=== PATIENT | female | born 1985 | race Caucasian/White ===

== ENCOUNTER 2017-01-05 02:05 | Emergency (ER) | payer MEDICAID, OTHER ==
[~2017-01-05] VITALS: Ht 157.5 cm; Wt 100.0 kg
[2017-01-05] MEDS ORDERED: HYDROcodone/APAP 5 MG/325 MG (NORCO) TAB PO ONE (02:30)
[2017-01-05] MEDS ORDERED: TETRACAINE 0.5% OPHTHALMIC SOLUTION 4 ML BTL OS ONE (02:30)
[2017-01-05] MEDS ORDERED: IBUPROFEN 200 MG (MOTRIN) TAB PO ONE (02:30)
[2017-01-05] MEDS ORDERED: FLUORESCEIN (FLUOR-I-STRIPS) 1 MG STRIP OS ONE (02:30)
[2017-01-05] MEDS ORDERED: ED- BACITRACIN/POLYMYXIN OPHTHALMIC OINT (AK-POLY-BAC) 3.5 GM TUBE OS ONE (02:35)
[2017-01-05 03:39] VITALS: BP 129/90
== END 2017-01-05 03:39 | disposition home or self-care (01) ==
LOC: ED 02:07
DX: S05.02XA Injury of conjunctiva and corneal abrasion without foreign body, left eye, initial encounter (principal); W22.8XXA Striking against or struck by other objects, initial encounter; Y92.009 Unspecified place in unspecified non-institutional (private) residence as the place of occurrence of the external cause
CPT/HCPCS: 99283

== ENCOUNTER 2017-01-28 01:28 | Emergency (ER) | payer BC, OTHER ==
[~2017-01-28] VITALS: Ht 154.9 cm; Wt 130.0 kg
[2017-01-28] MEDS ORDERED: SODIUM CHLORIDE FLUSH 3 ML SYR IV PRN (02:15)
[2017-01-28] MEDS ORDERED: KETOROLAC 30 MG/ML (TORADOL) 1 ML VIAL IV ONE (02:15)
[2017-01-28] MEDS: SODIUM CHLORIDE FLUSH 10 ML SYR IV PRN ×3 (02:25→06:22)
[2017-01-28 02:30] LABS: BASOPHILS % (AUTO) 0 % (0-2); EOSINOPHILS # (AUTO) 0.3 10^3uL; EOSINOPHILS % (AUTO) 3 % (0-4); LYMPHOCYTES # (AUTO) 2.9 X10^3; MEAN CORPUSCULAR HEMOGLOBIN 29.3 PG (26.0-34.0); MEAN CORPUSCULAR VOLUME 86 FL (80-100); MEAN PLATELET VOLUME 9.8 FL (6.0-9.5); MONOCYTES # (AUTO) 0.7 X10^3; MONOCYTES % (AUTO) 8 % (3-11); NEUTROPHILS # (AUTO) 5.4 X10^3; NEUTROPHILS % (AUTO) 58 % (51-67); PLATELET COUNT 338 10^3uL (150-450); WHITE BLOOD COUNT 9.23 10^3uL (4.0-11.0)
[2017-01-28 02:38] LABS: ALBUMIN 4.2 g/dL (3.4-5.0); ANION GAP 13.8 MEQ/L (3-15); CALCULATED IONIZED CALCIUM 3.9 mg/dL (3.8-4.6); TOTAL PROTEIN 7.4 g/dL (6.4-8.5)
[2017-01-28 02:44] LABS: BILIRUBIN,URINE Negative (Negative); CLARITY,URINE Cloudy; COLOR,URINE Yellow; GLUCOSE, URINE (UA) Negative (Negative); LEUKOCYTE ESTERASE ,URINE Negative (Negative); UROBILINOGEN,URINE 0.2 mg/dL (0.2-1.0)
[2017-01-28 02:51] LABS: AMORPHOUS SEDIMENT,UR 3+ /HPF; RBC,URINE None Seen /HPF; URINE CENTRIFUGED VOLUME 12 mL
[2017-01-28] MEDS ORDERED: HYDROmorphone 1 MG/ML (DILAUDID) SYRINGE IV ONE ×2 (03:15→06:10)
[2017-01-28] MEDS ORDERED: ONDANSETRON 2 MG/ML (Z0FRAN) 2 ML VIAL IV ONE (03:15)
[2017-01-28] MEDS ORDERED: CIPROFLOXACIN (CIPRO) 500 MG TABLET PO ONE (06:30)
[2017-01-28] MEDS ORDERED: metroNIDAZOLE 500 MG (FLAGYL) TABLET PO ONE (06:30)
[2017-01-28] MEDS ORDERED: ED- ONDANSETRON ODT 4 MG (ZOFRAN) 4 TABLETS/BTL PO ONE (06:30)
[2017-01-28] MEDS ORDERED: ED- HYDROcodone/ACETAMINOPHEN 5MG/325MG (NORCO) 6 TABLETS/BTL PO ONE (06:45)
[2017-01-28 06:56] VITALS: BP 120/70
== END 2017-01-28 06:58 | disposition home or self-care (01) ==
LOC: ED 01:31
DX: K57.92 Diverticulitis of intestine, part unspecified, without perforation or abscess without bleeding (principal)
CPT/HCPCS: 36415; 74177; 80053; 81003; 81015; 83690; 84703; 85025; 96361; 96374; 96375; 96376; 99284; J1170; J1885; J2405; J7030; Q9967; 99283

== ENCOUNTER 2017-01-30 02:44 | Emergency (ER) | payer BC ==
[~2017-01-30] VITALS: Ht 154.9 cm; Wt 100.0 kg
[2017-01-30] MEDS ORDERED: PROMETHAZINE 25 MG/ML (PHENERGAN) 1 ML VIAL IM ONE (03:10)
[2017-01-30] MEDS ORDERED: fentaNYL 100 MCG/2 ML VIAL IM ONE (03:10)
[2017-01-30] MEDS ORDERED: LORazepam 2 MG/ML (ATIVAN) 1 ML VIAL IM ONE (03:10)
--- NOTE | 2017-01-30 03:25 | NUR ---
Explained what meds pt would be getting to her prior to giving them, pt is nervous and concerned that she will not wake up, or have an overdose, assure pt that the meds being given will not over dose her, and that the RN's will be watching her o2sats, making sure that she is breathing, and her mom is also at the bedside. Pt does agree to take the meds.
--- NOTE | 2017-01-30 04:05 | NUR ---
Pt states that she is feeling a little more relaxed and does feel like she is able to go home.
[2017-01-30 04:39] VITALS: BP 105/72
== END 2017-01-30 04:15 | disposition home or self-care (01) ==
LOC: ED 02:45
DX: G43.909 Migraine, unspecified, not intractable, without status migrainosus (principal)
CPT/HCPCS: 70450; 96372; 99282; J2060; J2550; J3010; 99283

== ENCOUNTER 2017-02-26 07:31 | Emergency (ER) | payer BC ==
[~2017-02-26] VITALS: Ht 154.9 cm; Wt 100.0 kg
[~2017-02-26 07:31] MED LIST: ACET-273 PO; AZIT250T81 PO; CPR500T PO; HYDR-3702 PO; HYDR-3811 PO; KETO10TA55 PO; METR500T17 PO; ONDAN4ODT PO; OXYC1TAB87 PO
[2017-02-26] MEDS ORDERED: ESCI10TA PO (07:49)
[2017-02-26] MEDS ORDERED: VARE0.5T PO (07:49)
[2017-02-26] MEDS ORDERED: ONDANSETRON 2 MG/ML (Z0FRAN) 2 ML VIAL IV ONE (08:05)
[2017-02-26] MEDS ORDERED: SODIUM CHLORIDE FLUSH 3 ML SYR IV PRN (08:05)
[2017-02-26] MEDS ORDERED: SODIUM CHLORIDE FLUSH 10 ML SYR IV PRN (08:05)
[2017-02-26] MEDS ORDERED: KETOROLAC 30 MG/ML (TORADOL) 1 ML VIAL IV ONE (08:10)
[2017-02-26 08:11] LABS: BILIRUBIN,URINE Negative (Negative); CLARITY,URINE Clear; COLOR,URINE Yellow; GLUCOSE, URINE (UA) Negative (Negative); LEUKOCYTE ESTERASE ,URINE Negative (Negative); UROBILINOGEN,URINE 0.2 mg/dL (0.2-1.0)
[2017-02-26 08:26] LABS: HCG,QUALITATIVE URINE Negative (Negative); URINE CENTRIFUGED VOLUME 12 mL
[2017-02-26 08:28] LABS: BASOPHILS % (AUTO) 0 % (0-2); EOSINOPHILS # (AUTO) 0.4 10^3uL; EOSINOPHILS % (AUTO) 6 % (0-4); LYMPHOCYTES # (AUTO) 2.3 X10^3; MEAN CORPUSCULAR HEMOGLOBIN 29.4 PG (26.0-34.0); MEAN CORPUSCULAR HGB CONC 33.3 g/dL (31.0-37.0); MEAN CORPUSCULAR VOLUME 88 FL (80-100); MEAN PLATELET VOLUME 10.6 FL (6.0-9.5); MONOCYTES # (AUTO) 0.6 X10^3; MONOCYTES % (AUTO) 8 % (3-11); NEUTROPHILS # (AUTO) 3.6 X10^3; NEUTROPHILS % (AUTO) 52 % (51-67); PLATELET COUNT 247 10^3uL (150-450); WHITE BLOOD COUNT 6.97 10^3uL (4.0-11.0)
[2017-02-26 08:37] LABS: ALBUMIN 4.1 g/dL (3.4-5.0); ANION GAP 16.9 MEQ/L (3-15); TOTAL PROTEIN 7.2 g/dL (6.4-8.5)
[2017-02-26] MEDS ORDERED: ONDA4TAB8 PO (09:59)
[2017-02-26] MEDS ORDERED: HYDR-3702 PO (09:59)
[2017-02-26 10:07] VITALS: BP 117/72
--- NOTE | 2017-02-26 10:45 | Diagnostic Imaging Report ---
PROCEDURE: US Gallbladder. TECHNIQUE: Multiple real-time grayscale images were obtained over the right upper quadrant in various projections. INDICATION: Right upper quadrant pain with nausea and diarrhea. COMPARISON: 06/03/2015. DISCUSSION: Sonographic evaluation of the right upper quadrant was performed. The liver appears normal in echotexture and size. No hepatic mass is identified. The gallbladder appears normal without evidence of cholelithiasis, wall thickening, or pericholecystic fluid. No evidence of biliary duct dilatation. The common bile duct is normal measuring 0.4 cm. The pancreas appears normal as visualized. The right kidney appears normal in echotexture and size without evidence of hydronephrosis or renal mass. The right kidney measures 10.5 cm. There is no ascites or abnormal bowel loops identified. No sonographic Cristobal sign was reported. IMPRESSION: Unremarkable right upper quadrant ultrasound. Dictated by: Dictated on workstation # [id number]
== END 2017-02-26 10:08 | disposition home or self-care (01) ==
LOC: ED 07:32
DX: R10.11 Right upper quadrant pain (principal); M54.89 Other dorsalgia
CPT/HCPCS: 36415; 76705; 80053; 81003; 81015; 81025; 83690; 85025; 96361; 96374; 96375; 99284; J1885; J2405; J7030; 99283

== ENCOUNTER → 2017-03-04 | Outpatient (CLI) | payer BC ==
[~2017-03-04] MED LIST changes: +ESCI10TA PO; +ONDA4TAB8 PO; +VARE0.5T PO
--- NOTE | 2017-03-04 19:36 | Urgent Care T Sheet Gen (E) ---
Intake General Temperature (Fahrenheit): 97.6 Pulse: 74 Blood Pressure Systolic: 138 Blood Pressure Diastolic: 82 Respirations: 21 SPO2: 98 Chief Complaint: sore throat; fever Source: Patient History of Present Illness Initial Comments Pt notes sore throat and fever for the last 2 days. No cough or congestion. Allergies: Uncoded Allergies: PENCILLIN (Allergy, Unknown, 04/18/15) Home Meds Active Scripts Azithromycin (Zithromax Z-Winston)6 Tab/Pkt [id number] Mg PO SEE INSTRUCTIONS Infection #6 PKT Ref 0 Day One: Take 2 tablets by mouth Days Two-Five: Take 1 tablet by mouth Prov:ORLANDO AYALA 03/04/17 Ondansetron (Zofran ODT)4 Mg Tab.rapdis4 Mg PO Q4H Nausea/Vomiting #12 TAB Ref 0 Prov:SHOSHANA IBRAHIM MD 02/26/17 Hydrocodone Bit/Acetaminophen (Hydrocodon-Acetaminophen 5-325)1 Each Tablet1 Each PO Q4H Pain #12 TAB Prov:SHOSHANA IBRAHIM MD 02/26/17 Reported Medications Escitalopram Oxalate (Lexapro)10 Mg [id number] Mg PO DAILY 02/26/17 Varenicline Tartrate (Chantix)0.5 Mg Tablet0.5 Mg PO DAILY 02/26/17 Discontinued Reported Medications Oxycodone HCl/Acetaminophen (Percocet 5mg/325mg)1 Tab Tablet1-2 Tab PO NEEDED PRN PAIN Ref 0 01/30/17 Ciprofloxacin HCl (Cipro)500 Mg Padtcx748 Mg PO UD Infection Ref 0 01/30/17 Discontinued Scripts Ondansetron HCl (Zofran ODT)4 Mg Tab.rapdis4 Mg PO Q4H Nausea/Vomiting #15 TAB Ref 0 Prov:SHOSHANA IBRAHIM MD 01/28/17 Metronidazole 500 Mg [id number] Mg PO Q6H #40 TAB Prov:SHOSHANA IBRAHIM MD 01/28/17 Respiratory Constitutional Symptoms: See HPI Fever EENTM: See HPI Throat pain Respiratory: No symptoms reported Cardiovascular: No symptoms reported Gastrointestinal/Abdominal: No symptoms reported Skin: No symptoms reported All Other Systems Reviewed Remaining Systems: All other systems reviewed with negative findings Past Ibwwsuq-Hdpfzs-Yvraan Hx Patient's Social History Alcohol Use: Denies Use Smoking Status: Light tobacco smoker 1-9 Recent foreign travel: No Surgeries/Hospitalizations Hospitalization/Surgery Hx: LEEP Respiratory Respiratory History: None Cardiovascular Cardiovascular History: None Reproductive System Sexually Transmitted Diseases: Yes Gastrointestinal GI/Endocrine History: None Diabetes Diabetes: No HEENT Impaired Vision: None Hearing Impaired: None Psychosocial Behavior Disorders: None Physical Exam Physical Exam General Appearance: WD/WN No apparent distress Eyes, Ears, Nose, Throat Ex: PERRL/EOMI TMs normal Pharyngeal erythema Neck Exam: Non tender Full range of motion Normal inspection Normal thyroid Respiratory Exam: Lungs clear Normal breath sounds Cardiovascular Exam: Regular rate, rhythm No edema GI/ Exam: Non tender Normal bowel sounds No distention Skin Exam: No rashes Progress/Orders Lab Results Labs Results: Rapid Strep (positive) Departure Urgent Care Impression Chief Complaint: sore throat; fever Impression: Primary Impression: Strep pharyngitis Departure Disposition: HOME OR SELF-CARE Condition: Stable Referrals: CARLIE VILLALTA MD (PCP) Additional Instructions: Take zithromax as prescribed below. Pt has PCN allergy Tylenol/motrin for pain relief. Follow-up with Primary Care Provider in 7-10 days. Return to ER or UC if further concern. Discharge instructions verbally given to Patient/Caregiver. Patient/Caregiver verbalize understanding of discharge instructions. Scripts Azithromycin (Zithromax Z-Winston)6 Tab/Pkt [id number] Mg PO SEE INSTRUCTIONS Infection #6 PKT Ref 0 Day One: Take 2 tablets by mouth Days Two-Five: Take 1 tablet by mouth Prov:ORLANDO AYALA 03/04/17 End of report . ORLANDO AYALA Mar 04, 2017 19:35
[2017-03-04 22:14] VITALS: BP 138/82
== END ==
LOC: MHUC 18:52
PROVIDERS: ATTEND Physician Assistant
DX: J02.0 Streptococcal pharyngitis (principal)
CPT/HCPCS: 87880; 99213

== ENCOUNTER 2017-03-13 23:05 | Emergency (ER) | payer BC ==
[~2017-03-13] VITALS: Ht 154.9 cm; Wt 124.5 kg
--- OUTSIDE RECORDS SUMMARY | 2017-03-13 23:09 | XMS REPORT | Continuity of Care Document ---
Author Author [facility] Address Unknown Phone Unavailable Care Team Providers Care Manager Delivery Name Role Phone AMBAR, CARLIE Rolon MD PCP [phone] Insurance Providers Payer Name Policy Number Subscriber Name Relationship [facility] [id number] Kim Savage 18 Self / Same As Patient Self Pay Pending Melanie Apprv [phone] Kim Savage 18 Self / Same As Patient Advance Directives Directive Response Recorded Date/Time Advanced Directives No 02/26/17 7:32am Chief Complaint and Reason for Visit Chief Complaint Genitourinary Complaint Reason for Visit Right upper quadrant pain Problems Active Problems Medical Problem Onset Date Status Acute pain 06/20/2012 Resolved Corneal abrasion, left Unknown Resolved Diverticulitis ~01/28/2017 Acute Migraine Unknown Acute Right upper quadrant pain Unknown Acute Sinusitis ~04/16/2015 Resolved Medications Current Home Medications Medication Dose Units Route Directions Days/Qty Instructions Start Date Varenicline Tartrate 0.5 Mg 0.5 Mg ORAL Daily 02/26/17 Escitalopram Oxalate 10 Mg 10 Mg ORAL Daily 02/26/17 Hydrocodone Bit/Acetaminophen 1 Each 1 Each ORAL Every 4HRS for Pain 12 02/26/17 Ondansetron 4 Mg 4 Mg ORAL Every 4HRS for Nausea/Vomiting 12 02/26/17 Past Home Medications Medication Directions Ordered Status Acetaminophn/Pyril Mal/Caffein 1 Each Tablet, Oral As Needed 06/20/12 Discontinued Ketorolac Tromethamine 10 Mg Tablet, 10 Mg Oral Every 8HRS as needed Discontinued Azithromycin 6 Tab/Pkt Tablet, 250 Mg Oral See Instructions 04/16/15 Discontinued Hydrocodone Bit/Acetaminophen 1 Each Tablet, 1 Each Oral Four Times Daily as needed for Severe Pain 01/05/17 Discontinued Acetaminophen/Hydrocodone Bitart 1 Ea Tablet, 1-2 Tab Oral Every 6 Hours as needed for Pain 01/28/17 Discontinued Metronidazole 500 Mg Tablet, 500 Mg Oral Every 6 Hours 01/28/17 Discontinued Ondansetron Hcl 4 Mg Tab.rapdis, 4 Mg Oral Every 4HRS for Nausea/Vomiting Discontinued Ciprofloxacin 500 Mg Tablet, 500 Mg Oral As Directed 01/30/17 Discontinued Oxycodone/Acetaminophen 1 Tab Tablet, 1-2 Tab Oral As Needed as needed for Pain 01/30/17 Discontinued Social History Query Response Start Date Stop Date Smoking Status Light tobacco smoker 1-9 Hospital Discharge Instructions No hospital discharge instructions. Plan of Care Discharge Date 02/26/17 10:08am Disposition 01 HOME OR SELF-CARE Condition at Discharge Stable Instructions/Education Provided Muscle Strain (DC) Prescriptions See Medication Section Referrals CARLIE VILLALTA MD - Additional Instructions/Education Follow up with Dr. Villalta within the next week. He will determine the next step for evaluation if your pain persists. Hydrocodone/APAP 5/325 every 4 hours as needed for pain not relieved by over the counter medications Avoid fatty and greasy foods - these aggrevate gall bladder pain Heat/cold per comfort Return if symptoms worsen Zofran 4 mg ODT - dissolve in mouth every 4 hours as needed for nausea Some of your test results may not be complete prior to your leaving the Emergency Department. The Emergency Department is not authorized to give test results over the phone. Please contact the doctor's office listed in this packet of information for your final results. Follow up with your primary care physician or return to the Emergency Department for worsening or worrisome symptoms. * Emergency Department phone number: [phone], x [phone]* MEDICAL RECORD If you need copies of your X-rays, call [phone]. If you need copies of your medical record, including lab results, a signed authorization for release of records will be required. A telephone call for release of Health Information is not allowed. BILLING Billing can sometimes be confusing and frustrating. To help avoid confusion in the future, please take a moment to acquaint yourself with the billing parties for services. [employer] Emergency Room Services [facility] Physician Services [facility] X-rays [facility] Patients will receive bills for services from the appropriate provider. If you have any questions about your [facility] bill, our staff will be happy to assist you. Please call [phone], and ask for the billing department. THANK YOU for choosing [facility] as your emergency care provider! Care Plan and Goals ~~Discharge Care Plan~~ Problem: Urinary tract infection Goal: Decreased pain, frequency, and bloody urination. Instructions: Drink 6-8 glasses of water or noncarbonated beverages, including cranberry juice, per day. Take medication(s) as prescribed. Follow discharge instructions. Functional Status No functional status results. Allergies, Adverse Reactions, Alerts Allergen Type Severity Reaction Status Last Updated PENCILLIN Allergy Unknown Active 04/18/15 Immunizations Name Given Type Status Date Influenza Vaccine Received if Current 09/16/15 Historical Historical Vital Signs Acute Vital Signs Vital Response Date/Time Temperature (Fahrenheit) 98.2 02/26/2017 10:07am Pulse 79 bpm 02/26/2017 10:07am Respirations 16 02/26/2017 10:07am Height 5 ft 1 in Weight 220 lb Body Mass Index 41.0 kg/m^2 Results Laboratory Results Test Name Result Units Flags Reference Collection Date/Time Result Date/ Time Comments White Blood Count 9.23 10^3uL 4.0-11.0 01/28/2017 2:22am 01/28/2017 2: 31am Red Blood Count 4.67 10^6uL 4.00-5.00 01/28/2017 2:01/28/2017 2: 31am Hemoglobin 13.7 g/dL 12.0-15.5 01/28/2017 2:01/28/2017 2:31am Hematocrit 40.30 % 35.00-45.00 01/28/2017 2:01/28/2017 2:31am Mean Corpuscular Volume 86 FL 80-100 01/28/2017 2:01/28/2017 2: 31am Mean Corpuscular Hemoglobin 29.3 PG 26.0-34.0 01/28/2017 2:2016 2:31am Mean Corpuscular Hemoglobin Concent 34.0 g/dL 31.0-37.0 01/28/2017 2: 01/28/2017 2:31am Red Cell Distribution Width 13.2 % 11.8-15.6 01/28/2017 2:2016 2:31am Platelet Count 338 10^3uL 150-450 01/28/2017 2:01/28/2017 2:31am Mean Platelet Volume 9.8 FL H 6.0-9.5 01/28/2017 2:01/28/2017 2: 31am Neutrophils (%) (Auto) 58 % 51-67 01/28/2017 2:01/28/2017 2:31am Lymphocytes (%) (Auto) 31 % 20-46 01/28/2017 2:01/28/2017 2:31am Monocytes (%) (Auto) 8 % 3-11 01/28/2017 2:01/28/2017 2:31am Eosinophils (%) (Auto) 3 % 0-4 01/28/2017 2:01/28/2017 2:31am Basophils (%) (Auto) 0 % 0-2 01/28/2017 2:01/28/2017 2:31am Neutrophils # (Auto) 5.4 X10^3 01/28/2017 2:01/28/2017 2:31am Lymphocytes # (Auto) 2.9 X10^3 01/28/2017 2:01/28/2017 2:31am Monocytes # (Auto) 0.7 X10^3 01/28/2017 2:22am 01/28/2017 2:31am Eosinophils # (Auto) 0.3 10^3uL 01/28/2017 2:22am 01/28/2017 2:31am Basophils # (Auto) 0.0 10^3uL 01/28/2017 2:22am 01/28/2017 2:31am Volume Urine Centrifuged 12 mL 01/28/2017 2:38am 01/28/2017 2:51am Urine Collection Type CLEAN CATCH 01/28/2017 2:38am 01/28/2017 2: 51am Urine Color Yellow 01/28/2017 2:38am 01/28/2017 2:50am Urine Clarity Cloudy 01/28/2017 2:38am 01/28/2017 2:50am Urine pH 8.0 5.0 - 8.0 01/28/2017 2:38am 01/28/2017 2:50am Urine Specific [place] 1.020 1.005-1.030 01/28/2017 2:38am 2016 2:50am Urine Protein Trace H Negative 01/28/2017 2:38am 01/28/2017 2:50am Urine Glucose (UA) Negative Negative 01/28/2017 2:38am 01/28/2017 2: 50am Urine Blood Negative Negative 01/28/2017 2:38am 01/28/2017 2:50am Urine Ketones Negative Negative 01/28/2017 2:38am 01/28/2017 2:50am Urine Nitrite Negative Negative 01/28/2017 2:38am 01/28/2017 2:50am Urine Bilirubin Negative Negative 01/28/2017 2:38am 01/28/2017 2: 50am Urine Urobilinogen 0.2 mg/dL 0.2-1.0 01/28/2017 2:38am 01/28/2017 2: 50am Urine Leukocyte Esterase Negative Negative 01/28/2017 2:38am 2016 2:50am Urine Microscopic RBC None Seen /HPF 01/28/2017 2:38am 01/28/2017 2: 51am Urine WBC 0-2 /HPF 01/28/2017 2:38am 01/28/2017 2:51am Urine Bacteria 1+ /HPF 01/28/2017 2:38am 01/28/2017 2:51am Urine Squamous Epithelial Cells 50-100 /LPF 01/28/2017 2:382016 2:51am Urine Amorphous Sediment 3+ /HPF H 01/28/2017 2:3801/28/2017 2: 51am Sodium Level 143 mmol/L 135-150 01/28/2017 2:01/28/2017 2:38am Potassium Level 4.0 mmol/L 3.5-5.1 01/28/2017 2:01/28/2017 2:38am Chloride Level 106 mmol/L 98-108 01/28/2017 2:01/28/2017 2:38am Carbon Dioxide Level 27 mmol/L 22-29 01/28/2017 2:01/28/2017 2: 38am Anion Gap 13.8 MEQ/L 3-01/28/2017 2:01/28/2017 2:38am Blood Urea Nitrogen 17 mg/dL 7-18 01/28/2017 2:01/28/2017 2:38am Creatinine 0.92 mg/dL 0.6-1.2 01/28/2017 2:01/28/2017 2:38am BUN/Creatinine Ratio 18 10-20 01/28/2017 2:01/28/2017 2:38am Estimat Glomerular Filtration Rate 86.2 01/28/2017 2:2016 2:38am Estimated GFR (Non- 71.2 01/28/2017 2:2016 2:38am Glucose Level 103 mg/dL 70-110 01/28/2017 2:01/28/2017 2:38am Calculated Osmolality 277 mosm/L L 280-300 01/28/2017 2:01/28/2017 2:38am Calcium Level 9.1 mg/dL 8.8-10.8 01/28/2017 2:01/28/2017 2:38am Calcium/Ionized Calcium Ratio 3.9 mg/dL 3.8-4.6 01/28/2017 2:01/28 2:38am Total Bilirubin 0.7 mg/dL 0.1-1.0 01/28/2017 2:01/28/2017 2:38am Alkaline Phosphatase 51 U/L 38-126 01/28/2017 2:22am 01/28/2017 2:38am Aspartate Amino Transf (AST/SGOT) 21 U/L 15-37 01/28/2017 2:22am 2016 2:38am Alanine Aminotransferase (ALT/SGPT) 33 U/L 30-65 01/28/2017 2:22am 2:38am Total Protein 7.4 g/dL 6.4-8.5 01/28/2017 2:22am 01/28/2017 2:38am Albumin 4.2 g/dL 3.4-5.0 01/28/2017 2:22am 01/28/2017 2:38am Albumin/Globulin Ratio 1.312 1.1-1.8 01/28/2017 2:22am 01/28/2017 2: 38am Lipase 48 U/L 23-300 01/28/2017 2:22am 01/28/2017 2:38am Pending Laboratory Results Test Name Collection Date/Time Procedures Procedure Status Date Provider(s) ROUTINE VENIPUNCTURE Completed 01/28/17 CT ABD & PELV W/CONTRAST Completed 01/28/17 COMPREHEN METABOLIC PANEL Completed 01/28/17 URINALYSIS AUTO W/O SCOPE Completed 01/28/17 MICROSCOPIC EXAM OF URINE Completed 01/28/17 ASSAY OF LIPASE Completed 01/28/17 CHORIONIC GONADOTROPIN ASSAY Completed 01/28/17 COMPLETE CBC W/AUTO DIFF WBC Completed 01/28/17 HYDRATE IV INFUSION ADD-ON Completed 01/28/17 THER/PROPH/DIAG INJ IV PUSH Completed 01/28/17 TX/PRO/DX INJ NEW DRUG ADDON Completed 01/28/17 TX/PRO/DX INJ SAME DRUG DRUG SAFETY SCIENTIST Completed 01/28/17 EMERGENCY DEPT VISIT Completed 01/28/17 Completed 01/28/17 Completed 01/28/17 Completed 01/28/17 Completed 01/28/17 Completed 01/28/17 CT HEAD/BRAIN W/O DYE Completed 01/30/17 THER/PROPH/DIAG INJ SC/IM Completed 01/30/17 EMERGENCY DEPT VISIT Completed 01/30/17 Completed 01/30/17 Completed 01/30/17 Completed 01/30/17 Encounters Encounter Location Arrival/Admit Date Discharge/Depart Date Attending Provider Departed Emergency Room [facility] 02/26/17 7:32am 02/26/17 10:08am SHOSHANA IBRAHIM MD Departed Emergency Room [facility] 01/30/17 2:45am 01/30/17 4:15am KAMRYN CHRISTIANSON DO Departed Emergency Room [facility] 01/28/17 1:31am 01/28/17 6:58am SHOSHANA IBRAHIM MD Recent Diagnosis
[2017-03-13] MEDS ORDERED: LORazepam 1 MG (ATIVAN) TABLET PO ONE (23:55)
[2017-03-13] MEDS ORDERED: methylPREDNISolone 125 MG (Solu-MEDROL) VIAL IM ONE (23:55)
[2017-03-13] MEDS ORDERED: diphenhydrAMINE 50 MG/ML INJ (BENADRYL) IM ONE (23:55)
[2017-03-13] MEDS ORDERED: FAMOTIDINE 20 MG (PEPCID) TABLET PO ONE (23:55)
--- NOTE | 2017-03-14 00:08 | NUR ---
Benadryl and Solu-medrol given IM.
[2017-03-14] MEDS ORDERED: METH4TAB27 PO (01:02)
[2017-03-14 03:00] VITALS: BP 95/64
== END 2017-03-14 01:15 | disposition home or self-care (01) ==
LOC: ED 23:05
DX: T36.8X5A Adverse effect of other systemic antibiotics, initial encounter (principal); L27.0 Generalized skin eruption due to drugs and medicaments taken internally; Z87.891 Personal history of nicotine dependence
CPT/HCPCS: 96372; 99282; J1200; J2930; 99283